=== PATIENT | female | born 1990 | race Caucasian/White ===

== ENCOUNTER 2022-05-30 09:57 | Emergency (ER) | payer OTHER ==
[~2022-05-30] VITALS: Ht 157.5 cm; Wt 78.0 kg
[2022-05-30] MEDS ORDERED: OTEZLA30 MG (10:19)
== END 2022-05-30 12:31 | disposition home or self-care (01) ==
LOC: ER 09:57
DX: T59.891A Toxic effect of other specified gases, fumes and vapors, accidental (unintentional), initial encounter (principal); J02.9 Acute pharyngitis, unspecified; Y92.63 Factory as the place of occurrence of the external cause; J45.909 Unspecified asthma, uncomplicated